=== PATIENT | female | born 1990 ===

== ENCOUNTER 2017-01-25 06:50 | Inpatient (IN) | payer OTHER ==
[2017-01-25 06:34] VITALS: BMI 26.7
[2017-01-25] MEDS ORDERED: Sodium Citrate/Citric Acid 15 ml Sol PO ONE (06:51)
[2017-01-25] MEDS ORDERED: cefOXitin IV 2 gm in Dextrose 2 GM/50 ML BAG IVPB ONE (06:51)
[2017-01-25] MEDS ORDERED: Lactated Ringer's 1,000 ML IV SCH ×2 (07:00→10:30)
[2017-01-25] MEDS ORDERED: Oxytocin 20 units in LR 2,000 ML IV ONE (07:23)
[2017-01-25 07:30] LABS: CHLORIDE 105 mmol/L (98-107); POTASSIUM 3.5 mmol/L (3.6-5.2); SODIUM 134 mmol/L (132-148)
[2017-01-25 07:33] LABS: BLOOD UREA NITROGEN 4 mg/dL (7-17); CARBON DIOXIDE 19 mmol/L (22-30); GFR AFRICAN-AMERICAN > 60
[2017-01-25 07:34] LABS: CALCIUM 8.4 mg/dl (8.6-10.4); GLUCOSE,RANDOM 77 mg/dL (65-105)
[2017-01-25 07:37] LABS: BASO % 0.4 % (0.0-2.0); EOS # 0.1 K/uL (0.0-0.7); EOS % 1.3 % (0.0-4.0); HEMATOCRIT 33.2 % (34.0-47.0); LYMPH # 1.5 K/uL (1.0-4.3); LYMPH % 18.7 % (20.0-40.0); MEAN CELL VOLUME 92.5 fL (81.0-99.0); MEAN CORPUSCULAR HEMOGLOBIN 30.9 pg (27.0-31.0); MEAN CORPUSCULAR HGB CONC 33.4 g/dL (33.0-37.0); MEAN PLATELET VOLUME 8.9 fL (7.2-11.7); MONO # 0.7 K/uL (0.0-0.8); NRBC % 0.1 % (0.0-2.0); RED CELL DISTRIBUTION WIDTH 14.5 % (11.5-14.5); WHITE BLOOD COUNT 8.3 K/uL (4.8-10.8)
[2017-01-25 08:00] LABS: RBC URINE < 1 /hpf (0-3); URINE BACTERIA OCC (<OCC); URINE BILIRUBIN NEGATIVE (NEGATIVE); URINE BLOOD NEGATIVE (NEGATIVE); URINE COLOR Yellow (YELLOW); URINE GLUCOSE (UA) NORMAL (Normal); URINE KETONE NEGATIVE (NEGATIVE); URINE LEUKOCYTE ESTERASE NEG Leu/uL (Negative); URINE PROTEIN NEGATIVE (NEGATIVE); URINE UROBILINOGEN NORMAL mg/dL (0.2-1.0); WBC URINE 2 /hpf (0-5)
--- NOTE | 2017-01-25 08:43 | OBADHP ---
Datetime: 01/25/2017 08:37 Admit Comment, IP Provider: Chief complaint-scheduled csection HPI 26 y/o at 39 wga here for scheduled section. Patient denies vaginal bleeding or loss of fluid.report active movement course uncomplicated PMH denies PSH csectionx2 OBGYN HX ; csectionx2; miscarriage x1; hx of elevated bp with previous Social hx denies tobacco,alcohol or illiicit drug use Exam see exam section A/P 26 y/o at 39 wga here for scheduled csection and tubal ligation.Initial bp on admissio n high but normal after that -admit -see orders -monitor bp closely -informed consent for csection and btl obtained Pelvic Type - PN: Adequate Extremities - PN: Normal Abdomen - PN: Normal Back - PN: Normal Lungs - PN: Normal Heart - PN: Normal Neurologic - PN: Normal General - PN: Normal Weight - Estimated: 3400 Presentation-Admit: Vertex Contraction Comments Provider: none Gestation - Est Wks by US: 39.0 IP Hx Assessment: The History has been Reviewed and is Current Vital Signs Provider: Reviewed IP Chief Complaint: Scheduled Section FHR Category Provider Fetus A: Category I Dilatation, Provider: 0 Genitourinary Exam: Normal DTRs - PN: Normal EGA AdmitDate IP: 39.0 IP Adm Impression: Term, intrauterine ; No Active Labor IP Admit Plan: Admit to unit; Initiate Section protocol Datetime: 01/10/2017 15:18 IP Chief Complaint Other: headache
[2017-01-25] MEDS ORDERED: Morphine 1 mg/ml preservative-free Inj(Duramorph) ONE (08:49)
[2017-01-25] MEDS ORDERED: Methylene Blue 10 mg/mL(10ml) IV ONE (09:51)
[2017-01-25] MEDS ORDERED: Dexamethasone 4 mg/1 ml IVP PRN (10:30)
[2017-01-25] MEDS ORDERED: HYDROmorphone 0.5 mg/0.5 ml ISec IVP PRN (10:30)
[2017-01-25] MEDS ORDERED: DiphenhydrAMINE 50 mg/ml Inj IVP PRN (10:30)
[2017-01-25] MEDS ORDERED: DiphenhydrAMINE 50 mg/ml Inj ONE (11:51)
[2017-01-25] MEDS: cefOXitin IV 2 gm in Dextrose 2 GM/50 ML BAG IVPB SCH ×2 (15:47→23:17)
[2017-01-25 17:31] LABS: BASO % 0.1 % (0.0-2.0); EOS # 0.1 K/uL (0.0-0.7); EOS % 0.6 % (0.0-4.0); HEMATOCRIT 24.9 % (34.0-47.0); LYMPH # 1.9 K/uL (1.0-4.3); LYMPH % 14.8 % (20.0-40.0); MEAN CELL VOLUME 93.1 fL (81.0-99.0); MEAN CORPUSCULAR HEMOGLOBIN 30.2 pg (27.0-31.0); MEAN CORPUSCULAR HGB CONC 32.5 g/dL (33.0-37.0); MEAN PLATELET VOLUME 8.8 fL (7.2-11.7); MONO # 0.9 K/uL (0.0-0.8); MONO % 6.8 % (0.0-10.0); RED CELL DISTRIBUTION WIDTH 14.4 % (11.5-14.5)
--- NOTE | 2017-01-25 17:35 | OBDS ---
DELIVERY PERSONNEL Delivery Doctor: Alma Fine MD Scrub Nurse: Shanti Chavez [employer] Supervisor: Shelia Alan RN Anesthesiologist: Dr. Rivas MATERNAL INFORMATION Delivery Anesthesia: Spinal Medications in Delivery: methylin blue Estimated Blood Loss (ml): 1200 Placenta Cultured: Yes Maternal Complications: None Provider Comments: repeat and btl done. extensive lysis of adhesions performed LABOR SUMMARY EDC: 02/01/2017 00:00 No. Babies in Womb: 1 Attempted: No Labor Anesthesia: None LABOR INFORMATION Reason for Induction: Not Applicable Oxytocin: N/A Group B Beta Strep: Positive Antibiotics # of Doses: 1 Antibiotics Time of Last Dose: 811 Steroids Given: None Reason Steroids Not Administered: Not Applicable MEMBRANES Membranes Rupture Method: Artificial Rupture of Membranes: 01/25/2017 09:40 Length of Rupture (hrs): 0.00 Amniotic Fluid Color: Clear Amniotic Fluid Amount: Small Amniotic Fluid Odor: Normal STAGES OF LABOR Stage 3 hrs: -191 Stage 3 min: -59 VAGINAL DELIVERY Episiotomy: None Laceration Extension: N/A Laceration Type: None CSECTION DELIVERY Primary Indication: Repeat Elective CSection Urgency: Elective CSection Incidence: Repeat Labor: N/A Elective: Elective CSection Incision: Lower Uterine Transverse Sterilization Procedure: [place] Uterine Closure: Single-layer closure BABY A INFORMATION Infant Delivery Date/Time: 01/25/2017 09:40 Method of Delivery: Born in Route : No : N/A Forceps: N/A Vacuum Extraction: N/A Shoulder Dystocia : No SHOULDER DYSTOCIA BABY A Infant Delivery Date/Time: 01/25/2017 09:40 PRESENTATION/POSITION BABY A Presentation: Cephalic Cephalic Presentation: Vertex Vertex Position: Left Occipital Anterior Breech Presentation: N/A PLACENTA INFORMATION BABY A Placenta Delivery Time : 01/17/2017 09:41 Placenta Method of Delivery: Manual Removal Placenta Status: Delivered SCORES BABY A Heart Rate 1 min: >100 bpm Resp Effort 1 min: Good Cry Reflex Irritability 1 min: Cough or Sneeze or Pulls Away Muscle Tone 1 min: Active Motion Color 1 min: Body [employer], Extremities Blue SCORE 1 MIN: 9 Heart Rate 5 min: >100 bpm Resp Effort 5 min: Good Cry Reflex Irritability 5 min: Cough or Sneeze or Pulls Away Muscle Tone 5 min: Active Motion Color 5 min: Body [employer], Extremities Blue SCORE 5 MIN: 9 INFANT INFORMATION BABY A Gestational Age at Delivery: 39.0 Gestational Status: Term Outcome : Liveborn Infant Condition : Stable Sex: Female IDENTIFICATION/MEDS BABY A ID Band Number: [id number] ID Band Location: Left Leg; Left Arm Sensor Applied: Yes Sensor Number: [id number] Sensor Location : Cord Clamp Vitamin K Given : Aquamephyton 0.5 mg IM Erythromycin Given: Given Both Eyes WEIGHT/LENGTH BABY A Birthweight (gms): 2830 Infant Weight (lb): 6 Weight (oz): 4 Length Inches: 18.50 Length cms: 47.0 CORD INFORMATION BABY A No. Cord Vessels: 3 Nuchal Cord : N/A Nuchal Cord Other: n/a True Knot: 0 Cord pH Baby Arterial: n/a Infant Cord pH Baby Venous: n/a Cord Blood Taken: N/A Banking/Donate Info: n/a Infant Suction: Mouth; Nose ASSESSMENT BABY A Complications: None Physical Findings at Delivery: Within Normal Limits Respirations: Appears Normal Carriage Setter/ALS Called : No Care By: Hollis Alexander RN/ Dr. Rendon Transferred To: Remains with Mother
[2017-01-26 01:10] VITALS: RESP 20
--- NOTE | 2017-01-26 02:03 | OP ---
PROCEDURE DATE: 01/25/2017 PREOPERATIVE DIAGNOSES: 1. Previous section x 2. 2. at 39 weeks. 3. Multiparity, requesting voluntary sterilization. POSTOPERATIVE DIAGNOSES: 1. Previous section x 2. 2. at 39 weeks. 3. Multiparity, requesting voluntary sterilization. 4. Dense intraabdominal adhesions. PROCEDURE PERFORMED: Repeat lower transverse section, bilateral tubal ligation and lysis of adhesions. SURGEON: Dima Fine MD IT COORDINATOR: Dr. Bradley. ANESTHESIA: Spinal. ANESTHESIOLOGIST: Dr. Amaya. COMPLICATIONS: None. ESTIMATED BLOOD LOSS: 1200 mL. FINDINGS: A female in vertex presentation with Apgars of 9 at one minute and 9 at 5 minutes, normal tubes and ovaries bilaterally, dense adhesions noted between the entire uterus except the lowe r uterine segment and the rectus muscle and the peritoneum. SPECIMEN: Placenta and segment of right fallopian tube and left fallopian tube. Cord blood. Procedure was clean-contaminated. PROCEDURE IN DETAIL: After informed consent was obtained, the patient was taken to the operating snehal m where spinal anesthesia was administered by the anesthesia team. She was thereafter placed in dors al supine position with a leftward tilt. After it was determined that the patient had adequate anest hesia and the Liu catheter was then draining clear urine, incision was made in the previous C-secti on Pfannenstiel scar and this was carried down to the underlying layer of the with the help of the Bovie. The fascia was then incised in the midline and the incision was extended laterally with t he help of electrocautery as well. The muscle, at this point, were noted to be fused in the mi dline. The rectus muscle was then tented up with Allis clamps and they were incised in the midline. After they had been partially to half of their depth, it was noted that the rectus muscle was very densely adhered to the uterus. Further dissection was carried out and bleeding was noted fr om the uterus at this point. At this point, the bleeding point which was noted was suture ligated, p aying careful attention. The rectus muscle was lifted off with the help of Allis clamps and dissecte d off of the uterus including the majority of the patient portion of the lower uterine segment, aquiles g careful attention to the position of the bladder. Dense adhesions, which were away from the bladde r, ligated. On the left side, similar procedure was repeated on the right side where the uterus, inc luding the fundus, the mid portion of the lower uterine segment, was fused with the rectus sheath in the peritoneum and this was sharply with the help of Metzenbaum scissors and dense adhesion s were also clamped with Luz clamps and cut and suture ligated Approximately 1 hour was spent perfo rming the lysis of adhesions to gain access to the lower uterine segment. Once the lower uterine seg ment and the uterus was noted to be partially free of the adhesions, the bladder was noted and the bl adder was noted to be away from the area of the incision. A transverse incision was made with the he lp of the scalpel and this was extended laterally bluntly. The membranes were ruptured. The infant' s head was then delivered atraumatically. The body and the shoulders were also delivered without any difficulty and the cord was then clamped and cut. The was hate over to the waiting pediatric ians. The cord blood was then collected and the placenta was then manually removed. The uterus coul d not be delivered out through the patient's abdomen. The uterus was cleaned with a dry sponge. The angles were grasped with T clamps and the uterine incision was closed with 0 Polysorb in a running-l ocked fashion. Secondly, the area of the dissection on the anterior wall of the uterus where the mus isa had been dissected off was noted to be bleeding, as well as the serosa partially had been removed to gain access to the uterus. This bleeding area is also closed with 0 chromic, as well as 0 Vicryl in a running locked fashion. Bleeding was noted from the midsection of the uterus and this was sut ure ligated with multiple [id number] stitches of 0 chromic. At this point, adequate hemostasis noted from the uterine incision, as well as the area of dissection. Attempt the density and was note d again between the uterine fundus and the left rectus muscle. This was clamped with Luz clamps an d cut and suture ligated. [place] was thereafter obtained to the left fallopian tube, which was grasped with Elmo clamps and my loop was formed . And then 2-0 plain. This loop was excised. and the ends were cauterized. Adequate hemostasis was noted from the site of the tubal ligation. Simila r procedure was repeated on the right side as well. At this point, the small hematoma was noted from at the uterine incision and this was suture ligated using [id number] stitches of 0 chromic. Al l the bleeding was, again, noted from the mid section of the uterus, as well as was also suture ligat ed with [id number] stitches of 0 chromic. At this point, the pelvis was irrigated and suctioned . The site of tubal ligation as the uterus was inspected for hemostasis and adequate hemostasis was ensured. Surgicel was thereafter placed over the uterine incision repair site. The muscle and the p eritoneum was closed in a mass closure fashion using 2-0 Polysorb. The fascia was closed with 0 Poly sorb in a running fashion. The penis tissue was irrigated and suctioned and the bleeding points caut erized. The skin was thereafter closed with carol. The sponge, lap, needle, and instrument count was correct x 3 as reported to me. The patient tolerated the procedure well. The patient was therea fter cleaned and taken to the recovery room in stable condition. Postop hemoglobin after 4 hours pos top and was ordered. Please note that the patient received 2 grams of Mefoxin prior to the surgical incision for infection prophylaxis and the plan is to continue to monitor the patient closely. The p atient was stable at the end of the procedure. The Liu catheter was left in situ for postop bladde r drainage. Dima Fine MD cc: [id number] TT: 01/26/2017 02:03:20 tiffanie
[2017-01-26] MEDS: Oxycodone/Acetaminophen 5/325 mg Tab PO PRN ×4 (03:49→22:04)
[2017-01-26] MEDS: cefOXitin IV 2 gm in Dextrose 2 GM/50 ML BAG IVPB SCH (07:48)
[2017-01-26 08:25] LABS: BASO % 0.1 % (0.0-2.0); EOS % 0.1 % (0.0-4.0); HEMATOCRIT 23.3 % (34.0-47.0); LYMPH # 1.3 K/uL (1.0-4.3); LYMPH % 7.3 % (20.0-40.0); MEAN CELL VOLUME 92.5 fL (81.0-99.0); MEAN CORPUSCULAR HEMOGLOBIN 30.1 pg (27.0-31.0); MEAN CORPUSCULAR HGB CONC 32.6 g/dL (33.0-37.0); MEAN PLATELET VOLUME 8.6 fL (7.2-11.7); MONO # 1.1 K/uL (0.0-0.8); MONO % 6.1 % (0.0-10.0); PLATELET COUNT 159 K/uL (130-400); RED CELL DISTRIBUTION WIDTH 14.2 % (11.5-14.5); WHITE BLOOD COUNT 17.4 K/uL (4.8-10.8)
--- NOTE | 2017-01-26 08:52 | OBPPN ---
Datetime: 01/26/2017 08:44 PP Pain Prov: Within normal limits PP Nausea Prov: Denies PP Flatus Prov: No PP Abdomen/Uterus Prov: Normal PP Lochia Prov: Normal PP Extremities Prov: Normal PP C/S Incision Prov: Normal PP Comments Phys Exam Prov: fudus bwelow umblicus ext mild edema,no calf ten dressing clean andf dry PP Impression Prov: Normal progression PP Plan Prov: Continue present management PP Plan Other Prov: ferrous sulfate 325 mg tid PP Progress Note Prov: pt was seen at bed side, pain under control,no n/fv, tolerating deit,voiding, min lochia, flatus-,no sob or chest pain pod# 1 s/p c/s, acute blood loss anemia cbc at 4 pm cont pain mangement cont post op care encourage ambulation cont ferrous sulate darby translated Vital Signs Provider PP: Reviewed; Within Normal Limits
[2017-01-26 09:28] LABS: NEUTROPHIL 92 % (50-75); TOTAL CELLS COUNTED 100
[2017-01-26] MEDS: Simethicone 80 mg Chewtab PO SCH ×4 (10:13→22:06)
[2017-01-26 16:53] LABS: HEMATOCRIT 24.3 % (34.0-47.0); MEAN CELL VOLUME 93.9 fL (81.0-99.0); MEAN CORPUSCULAR HEMOGLOBIN 30.2 pg (27.0-31.0); MEAN CORPUSCULAR HGB CONC 32.1 g/dL (33.0-37.0); MEAN PLATELET VOLUME 8.5 fL (7.2-11.7); RED CELL DISTRIBUTION WIDTH 14.5 % (11.5-14.5); WHITE BLOOD COUNT 18.8 K/uL (4.8-10.8)
[2017-01-27] MEDS: Oxycodone/Acetaminophen 5/325 mg Tab PO PRN ×4 (02:40→14:23)
[2017-01-27] MEDS: Simethicone 80 mg Chewtab PO SCH ×4 (09:59→21:22)
--- NOTE | 2017-01-27 14:56 | OBPPN ---
Datetime: 01/27/2017 14:47 PP Pain Prov: Within normal limits PP Nausea Prov: Denies PP Flatus Prov: Yes PP BM Prov: No PP Breasts Prov: Normal PP Heart Prov: Normal PP Lungs Prov: Normal PP Abdomen/Uterus Prov: Normal PP Lochia Prov: Normal PP Vulva/Perineum Prov: Not Done PP CVA Tenderness Prov: Normal PP Extremities Prov: Normal PP C/S Incision Prov: Normal PP Progress Prov: Normal PP Comments Phys Exam Prov: Abdomen: (+) BS. Softly distended. Fundus firm, at umbilicus; mild and a ppropriately tender. Incision with carol - clean, dry and intact. All other systems reviewed and are stable. PP Impression Prov: Normal progression PP Plan Prov: Continue present management PP Progress Note Prov: Patient seen at approximately 1045 hours: received in bed, room 459. Breast- and bottlefeeding. Ambulating in room only. Voiding without difficulty. Denies headaches, dizziness; palpitations, shortness of breath. Denies nausea or vomiting after eating; passing small amount of fl atus P.E.: as above. WD in NAD. Awake, alert, oriented to time, person and place. Pleasant and cooperat natalie - H/H 01/26/ 7.8/24.3 Rh(+) Assessment: POD#2 26 yo P3, S/P repeat C/S with BTL and extensive lysis of adhesions; acute intrao perative hemorrhage - currently stable. Returning GI and functions. Encouraged to ambulate in andrea ways. Clinically stable. Plan: 1) continue current management 2) Anticipate discharge home 01/28/17 Vital Signs Provider PP: Reviewed Vital Signs Provider Details PP: pulse = 104 bpm
[2017-01-27 18:10] VITALS: TEMP 97.8; O2SAT 99
[2017-01-28 00:45] VITALS: BP 114/72; PULSE 110
[2017-01-28] MEDS ORDERED: guaiFENesin 100 mg/5 ml Syrup UD PO PRN (07:56)
--- NOTE | 2017-01-28 08:03 | OBPPN ---
Datetime: 01/28/2017 07:58 PP Pain Prov: Within normal limits PP Nausea Prov: Denies PP Flatus Prov: Yes PP BM Prov: No PP Heart Prov: Normal PP Lungs Prov: Normal PP Abdomen/Uterus Prov: Normal PP Lochia Prov: Normal PP Vulva/Perineum Prov: Normal PP CVA Tenderness Prov: Normal PP Extremities Prov: Normal PP C/S Incision Prov: Normal PP Progress Prov: Normal PP Impression Prov: Normal progression PP Plan Prov: Discharge PP Progress Note Prov: S-patient reports that her pain is adequately controlled.denies nausea, vomit ing, headache, chest pain, shortness of breath O-VS BP wnl; mild tachycardia noted Abdomen -soft; nontender Fundus firm and below umbilcius incision clean, dry and intact Extremities no calf tenderness A/P Patient s/p csection pod 3 doing well.anemia secondary to blood loss.patient hemodynamically s table.ambulating and voiding without difficulty -discharge today -follow up in clinic in 1 week Vital Signs Provider PP: Reviewed Vital Signs Provider Details PP: heart rate 98
--- NOTE | 2017-01-28 08:04 | OBDCSUM ---
Datetime: 01/28/2017 08:01 Discharged to, Provider: Home Follow up at, Provider: clinic Disch Instr Diet: Regular Discharge Instructions, Provider: Routine instructions given Discharge Diagnosis, Provider: Term Delivered Discharge Time: 01/28/2017 08:01 Follow up in weeks, Provider: 1 week Disch Activity Restrictions: No exercising; No lifting; No driving; No sexual activity; Nothing in v agina - [place], tampons, douche Discharge Comment, Provider: return to er if you have fever, pain, heavy bleeding or any other probl ems Discharge Diagnosis Prov Other: s/p csection and btl
[2017-01-28] MEDS: Simethicone 80 mg Chewtab PO SCH ×2 (09:28→13:27)
== END 2017-01-28 13:50 | disposition home or self-care (01) | DRG 370 ==
LOC: C.4D 06:50 → C.4M 15:00
PROVIDERS: ADMIT Student in an Organized Health Care Education/Training Program; ATTEND Student in an Organized Health Care Education/Training Program
PROC: 10D00Z1 Extraction of Products of Conception, Low, Open Approach (ICD-10-PCS; principal; 2017-01-25)
PROC: 0UB70ZZ Excision of Bilateral Fallopian Tubes, Open Approach (ICD-10-PCS; 2017-01-25)
PROC: 0JNC0ZZ Release Pelvic Region Subcutaneous Tissue and Fascia, Open Approach (ICD-10-PCS; 2017-01-25)
DX: O34.211 Maternal care for low transverse scar from previous cesarean delivery (principal); O99.02 Anemia complicating childbirth; D62 Acute posthemorrhagic anemia; O99.89 Other specified diseases and conditions complicating pregnancy, childbirth and the puerperium; N73.6 Female pelvic peritoneal adhesions (postinfective); Z37.0 Single live birth; Z3A.39 39 weeks gestation of pregnancy; Z30.2 Encounter for sterilization